=== PATIENT | male | born 1975 | race Caucasian/White ===

== ENCOUNTER 2024-02-15 05:38 | Emergency (ER) | payer OTHER, SELFPAY ==
[2024-02-15 05:40] VITALS: BP 138/86
[2024-02-15] MEDS: CARAFATE SUSPENSION 1 GM PO (07:11)
[2024-02-15] MEDS: DECADRON 10 MG IM (07:11)
[2024-02-15 08:00] VITALS: BP 134/79
--- NOTE | 2024-02-15 09:50 | ED.GENMED ---
History of Present Illness
General
Chief Complaint: Throat Problem
Source: patient and spouse
Time Seen by Provider: 02/15/24 06:41
History of Present Illness
History of Present Illness:
This is a 48yo male who presents after he woke up feeling that he was choking. He states he is 'choking on my tonsils'. Patient states he drank a little bit too much last night and thinks he was snoring heavily because he was sleeping heavily. He
he does have a history of snoring loudly. He woke feeling like he was going to throw up and was gagging. Breath or drooling. No voice change. Feels like he is going to 'vomit up my tonsils'.
Past History
Past History
ED Past Medical History: None
ED Past Surgical History: None
Social History
Tobacco: Non-smoker
Drug: None
Phy Exam
Physical Exam
Physical Exam:
CONSTITUTIONAL Patient alert and oriented to person, place and time. Well-appearing. Vital signs reviewed.
HEAD atraumatic, normocephalic.
EYES eyelids normal to inspection, Pupils equally round and reactive to light, Extraocular muscles intact, Conjunctiva normal, Sclera normal.
ENT mild edema to the uvula, no drooling, no stridor, lips and tongue normal
NECK normal range of motion, Trachea midline, no jugular venous distention.
RESPIRATORY CHEST No respiratory distress noted, Chest expansion equal
UPPER EXTREMITY range of motion normal, Motor strength normal, no cyanosis, no edema.
LOWER EXTREMITY range of motion normal, Motor strength normal, no cyanosis, no edema.
NEURO Speech normal, No focal motor deficits, [place] coma scale 15, Memory normal, Cranial Nerves intact to screening exam.
SKIN skin warm, dry, and normal in color.
Course
Orders/Labs/Results
Orders:
Orders
02/15/24 06:58
Dexamethasone Sod Phosphate [Decadron] 10 mg IM NOW STA
02/15/24 06:59
Sucralfate Suspension [Carafate Suspension] 1 gm PO NOW STA
Vital Signs
Initial and Last Documented VS:
Initial Vital Signs
Temp Pulse Resp BP Pulse Ox
97.8 F 102 24 138/86 96
02/15/24 05:40 02/15/24 05:40 02/15/24 05:40 02/15/24 05:40 02/15/24 05:40
Last Documented Vital Signs
Temp Pulse Resp BP Pulse Ox
97.8 F 91 20 134/79 97
02/15/24 05:40 02/15/24 08:00 02/15/24 08:00 02/15/24 08:00 02/15/24 08:00
MDM/Problems Addressed
MDM/Problems Addressed:
Uvular edema, obstructive sleep apnea
*Pulse Oximetry
Patient hypoxic: no
*Critical Care Note
Total Time (30-74mins, 75-104mins- exclusive of procedures): Not Applicable
Data Reviewed
Source: patient and spouse
Further Testing Considered But Not Given:
Considered imaging but patient without drooling or change in voice or stridor
Patient Management
Escalation/DeEscalation of care consider admission/obs:
Improved on reevaluation. Feels like it is gagging him which I suspect is from those mild uvular edema. Question whether this is a uvulitis related to infection or related to forceful snoring and swelling. Also consider acid reflux related to
drinking alcohol as an etiology. At this time I think steroids are appropriate and outpatient follow-up. I did strongly recommend outpatient sleep study
ED Attending Note
-
Portions of this chart may have been created with voice recognition software.� Occasional wrong word or��sound alike� substitutions may have occurred due to the inherent limitations of voice recognition software.
Discharge Plan
Departure
Patient Disposition: Home (Routine Discharge)
Date of Disposition: 02/15/24
Time of Disposition: 09:50
Patient with high blood pressure during this ER visit?: No
Discharge Problem:
Uvular edema, MAYUR (obstructive sleep apnea)
Prescriptions:
New
prednisone 50 mg tablet
50 mg PO DAILY Qty: 5 0RF
No Action
famotidine 20 MG tablet
20 mg PO BID Qty: 28 0RF
Rx Instructions:
Take 20 mg twice a day for 14 days
ascorbic acid (vitamin C) [Vitamin C] 500 MG tablet
1,000 mg PO TID Qty: 56 0RF
aspirin 81 MG tablet,chewable
81 mg PO DAILY Qty: 14 0RF
Rx Instructions:
Take 81 mg daily for 14 days
zinc sulfate 220 MG capsule
220 mg PO DAILY Qty: 14 0RF
Rx Instructions:
Take 220 mg daily for 14 days
cholecalciferol (vitamin D3) 1,000 UNITS tablet
2,000 units PO DAILY Qty: 28 0RF
Rx Instructions:
Take 2,000 units daily for 14 days
melatonin 5 MG tablet
5 mg PO HS Qty: 14 0RF
Rx Instructions:
Take 5 mg daily at bedtime for 14 days
Referrals:
NONE,* [Family Provider] -
Activity Restrictions/Additional Instructions:
Uvular edema
Obstructive Sleep Apnea
Please see your doctor in the next 3 days for follow-up and reevaluation. Return daily for difficulty breathing, difficulty swallowing, drooling or any other concerns. In addition, as discussed, it is important that you have a sleep study to
further evaluate and treat your obstructive sleep apnea.
Interventions
Interventions:
*Risk Screen - Suicide Last Done: 02/15/24 05:40
*Neglect/Abuse Screening Last Done: 02/15/24 05:40
ED-EENT Assessment Last Done: 02/15/24 08:00
ED- Neurological Assessment Last Done: 02/15/24 08:00
ED-Psychological Assessment Last Done: 02/15/24 08:00
ED- Pulmonary Assessment Last Done: 02/15/24 08:00
Discharge Date and Time
Print Language: SLOV[place]
[2024-02-15 10:00] VITALS: BP 129/75
== END 2024-02-15 10:01 | disposition home or self-care (01) ==
LOC: EMR 05:38
PROVIDERS: EMERGENCY PHYSICIAN Emergency Medicine
DX: R60.9 Edema, unspecified (principal); G47.33 Obstructive sleep apnea (adult) (pediatric)
CPT/HCPCS: 99282; 96372